=== PATIENT | female | born 1995 | race Caucasian/White ===

== ENCOUNTER 2016-09-16 09:49 | Emergency (ER) | payer OTHER ==
[~2016-09-16] VITALS: Ht 162.6 cm; Wt 74.8 kg
[2016-09-16 11:55] LABS: UA SPECIFIC GRAVITY 1.025 (1.005-1.035); microscopic required? YES; urine erythrocyte NEGATIVE (NEGATIVE)
[2016-09-16 17:54] VITALS: BP 114/71
== END 2016-09-16 17:54 | disposition home or self-care (01) ==
LOC: ED 09:49
PROVIDERS: Emergency Medicine
DX: O23.592 Infection of other part of genital tract in pregnancy, second trimester (principal); Z3A.16 16 weeks gestation of pregnancy
CPT/HCPCS: 87491; 87591; J0696; Q0092

== ENCOUNTER 2016-10-06 08:05 | Emergency (ER) | payer OTHER ==
[2016-10-06 08:20] VITALS: BP 114/64
== END 2016-10-06 08:48 | disposition home or self-care (01) ==
LOC: ED 08:05
DX: O26.892 Other specified pregnancy related conditions, second trimester (principal); K59.00 Constipation, unspecified; Z3A.00 Weeks of gestation of pregnancy not specified

== ENCOUNTER 2016-11-21 09:51 | Emergency (ER) | payer OTHER ==
[~2016-11-21] VITALS: Ht 160 cm; Wt 81.6 kg
[2016-11-21 10:04] VITALS: BP 120/67
[2016-11-21 10:17] LABS: PLATELET COUNT 274 x10^3mcL (130-400); RED CELL DISTRIBUTION WIDTH 14.3 % (11.5-14.5)
[2016-11-21 10:25] LABS: CALCIUM 8.8 mg/dL (8.5-10.1); CARBON DIOXIDE 23.9 mmol/L (21-32); CHLORIDE SERUM 104 mmol/L (98-107); CREATININE SERUM 0.6 mg/dL (0.6-1.0); GFR1 > 60 mL/min; GLUCOSE SERUM 100 mg/dL (74-106); POTASSIUM SERUM 3.8 mmol/L (3.5-5.1); SODIUM SERUM 137 mmol/L (136-145)
[2016-11-21 10:30] LABS: ALBUMIN 2.7 g/dL (3.4-5.0); ALKALINE PHOSPHATASE 71 U/L (46-116); ALT/SGPT 12 U/L (14-59); AST/SGOT 12 U/L (15-37); BILIRUBIN TOTAL 0.4 mg/dL (0.20-1.00); TOTAL PROTEIN, SERUM 6.7 g/dL (6.4-8.2)
== END 2016-11-21 11:23 | disposition home or self-care (01) ==
LOC: ED 09:51
PROVIDERS: Emergency Medicine
DX: O26.893 Other specified pregnancy related conditions, third trimester (principal); R55 Syncope and collapse; Z3A.30 30 weeks gestation of pregnancy
CPT/HCPCS: J7030; Q0092

== ENCOUNTER 2016-11-24 08:32 | Emergency (ER) | payer OTHER ==
[~2016-11-24] VITALS: Ht 157.5 cm; Wt 78.6 kg
[2016-11-24 11:10] VITALS: BP 107/66
== END 2016-11-24 11:10 | disposition short-term general hospital (02) ==
LOC: ED 08:32
DX: O26.893 Other specified pregnancy related conditions, third trimester (principal); B00.89 Other herpesviral infection; Z3A.28 28 weeks gestation of pregnancy

== ENCOUNTER 2016-12-28 07:29 | Emergency (ER) | payer OTHER ==
[~2016-12-28] VITALS: Ht 157.5 cm; Wt 86.8 kg
[2016-12-28 07:37] VITALS: BP 109/65
== END 2016-12-28 07:56 | disposition home or self-care (01) ==
LOC: ED 07:29
DX: H60.91 Unspecified otitis externa, right ear (principal)

== ENCOUNTER 2017-07-18 16:58 | Emergency (ER) | payer OTHER ==
[2017-07-18 19:04] VITALS: BP 122/64
== END 2017-07-18 19:04 | disposition home or self-care (01) ==
LOC: ED 16:58
DX: H66.91 Otitis media, unspecified, right ear (principal); J06.9 Acute upper respiratory infection, unspecified; R03.0 Elevated blood-pressure reading, without diagnosis of hypertension
CPT/HCPCS: J1885

== ENCOUNTER 2018-03-09 16:17 | Emergency (ER) | payer OTHER ==
[~2018-03-09] VITALS: Ht 157.5 cm; Wt 103.0 kg
[2018-03-09 16:39] VITALS: Ht 157.5 cm; Wt 103.0 kg
[2018-03-09 18:45] VITALS: BP 147/102
== END 2018-03-09 18:45 | disposition home or self-care (01) ==
LOC: ED 16:17
DX: H66.92 Otitis media, unspecified, left ear (principal)

== ENCOUNTER 2018-09-30 10:05 | Emergency (ER) | payer OTHER ==
[~2018-09-30] VITALS: Ht 162.6 cm; Wt 103.9 kg
[2018-09-30 10:22] VITALS: Ht 162.6 cm; Wt 103.9 kg
[2018-09-30 10:48] VITALS: BP 138/72
== END 2018-09-30 10:48 | disposition home or self-care (01) ==
LOC: ED 10:05
DX: J02.9 Acute pharyngitis, unspecified (principal); Z98.890 Other specified postprocedural states

== ENCOUNTER 2018-12-04 00:07 | Emergency (ER) | payer OTHER ==
[~2018-12-04] VITALS: Ht 157.5 cm; Wt 105.8 kg
[2018-12-04 00:40] VITALS: Ht 157.5 cm; Wt 105.8 kg
[2018-12-04 02:44] VITALS: BP 136/76
== END 2018-12-04 02:44 | disposition home or self-care (01) ==
LOC: ED 00:07
DX: J02.9 Acute pharyngitis, unspecified (principal); E11.9 Type 2 diabetes mellitus without complications; Z98.890 Other specified postprocedural states
CPT/HCPCS: J1885

== ENCOUNTER 2019-02-26 11:15 | Emergency (ER) | payer OTHER ==
[~2019-02-26] VITALS: Ht 152.4 cm; Wt 102.5 kg
[2019-02-26 11:23] VITALS: BP 136/78; Ht 152.4 cm; Wt 102.5 kg
== END 2019-02-26 11:55 | disposition home or self-care (01) ==
LOC: ED 11:15
DX: H66.92 Otitis media, unspecified, left ear (principal); E11.9 Type 2 diabetes mellitus without complications; Z98.890 Other specified postprocedural states
CPT/HCPCS: 84439

== ENCOUNTER 2019-02-28 15:36 | Emergency (ER) | payer OTHER ==
[~2019-02-28] VITALS: Ht 162.6 cm; Wt 102.1 kg
[2019-02-28 15:43] VITALS: BP 119/86
== END 2019-02-28 18:10 | disposition home or self-care (01) ==
LOC: ED 15:36
DX: H60.92 Unspecified otitis externa, left ear (principal); E11.9 Type 2 diabetes mellitus without complications; Z98.890 Other specified postprocedural states

== ENCOUNTER 2020-04-02 09:03 | Emergency (ER) | payer OTHER ==
[~2020-04-02] VITALS: Ht 154.9 cm; Wt 109.3 kg
[2020-04-02 09:10] VITALS: Ht 154.9 cm; Wt 109.3 kg
[2020-04-02 09:50] VITALS: BP 140/74
== END 2020-04-02 09:50 | disposition home or self-care (01) ==
LOC: ED 09:03
DX: H60.92 Unspecified otitis externa, left ear (principal); E11.9 Type 2 diabetes mellitus without complications; Z98.890 Other specified postprocedural states